=== PATIENT | male | born 1965 | race Two or more races ===

== ENCOUNTER → 2024-01-17 | Outpatient (REF) | payer BC | LOC: M SFHCDERM 17:22 | PROVIDERS: ATTEND Nurse Practitioner Family | DX: L82.0 Inflamed seborrheic keratosis (principal) ==

== ENCOUNTER → 2025-01-12 | Outpatient (CLI) | payer BC | LOC: M RAD 11:29 | PROVIDERS: ATTEND Family Medicine | DX: R10.31 Right lower quadrant pain (principal); N28.1 Cyst of kidney, acquired ==

== ENCOUNTER → 2025-06-08 | Outpatient (REF) | payer BC ==
[2025-06-08 18:46] LABS: ALT/SGPT 41.0 U/L (7.0-40); AST/SGOT 25.0 U/L (<34); CALCIUM LEVEL 8.9 MG/DL (8.3-10.6); CARBON DIOXIDE LEVEL 25.0 MMOL/L (20-31); CHLORIDE LEVEL 106.0 MMOL/L (98-107); CHOLESTEROL LEVEL 136.0 MG/DL (<200); CHOLESTEROL RISK RATIO 3.93 (<5); CREATININE FOR GFR 1.17 MG/DL (0.70-1.30); GLOMERULAR FILTRATION RATE 71.4 (>49); LDL CHOLESTEROL 66.6 MG/DL (<100); NON-HDL-C 101.4 MG/DL; POTASSIUM SERUM 4.1 MMOL/L (3.5-5.1); SODIUM LEVEL 142.0 MMOL/L (136-145); TRIGLYCERIDES LEVEL 174.0 MG/DL (<150)
[2025-06-08 19:23] LABS: ESTIMATED AVERAGE GLUCOSE 108.0 MG/DL (60-110)
== END ==
LOC: M SFHCLERA 09:42
DX: E66.01 Morbid (severe) obesity due to excess calories (principal); E78.5 Hyperlipidemia, unspecified